=== PATIENT | male | born 1975 | race Hispanic/Latino ===

== ENCOUNTER 2021-01-29 02:21 | Emergency (ER) | payer OTHER, MEDICARE ==
[2021-01-29] MEDS ORDERED: ONDANSETRON 4MG INJ ONE (02:50)
[2021-01-29] MEDS ORDERED: MORPHINE 4 MG SYG ONE (02:51)
[2021-01-29] MEDS ORDERED: KETOROLAC 30MG VIAL (30MG/ML) ONE (02:51)
[2021-01-29 03:17] LABS: BASOPHILS % (AUTO) 0.6 % (0.0-5.0); EOSINOPHILS % (AUTO) 1.8 % (0.0-8.0); HEMATOCRIT 52.4 % (42-54); LYMPHOCYTES % (AUTO) 21.4 % (21.0-51.0); MEAN CORPUSCULAR HEMOGLOBIN 28.9 pg (27.0-33.0); MEAN CORPUSCULAR HGB CONC 33.4 g/dL (32.0-36.0); MEAN CORPUSCULAR VOLUME 86.6 fL (79-99); MONOCYTES % (AUTO) 6.5 % (3.0-13.0); NEUTROPHILS % (AUTO) 69.5 % (40.0-77.0); PLATELET COUNT (AUTO) 232 K/uL (130-400); RED BLOOD CELL COUNT(AUTO) 6.05 MIL/uL (4.50-6.20); WHITE BLOOD COUNT (AUTO) 8.2 K/uL (4.8-10.8)
[2021-01-29 03:22] LABS: APPEARANCE,URINE Clear (CLEAR); BILIRUBIN,URINE Negative (NEGATIVE); COLOR,URINE Yellow (YELLOW); GLUCOSE, URINE (UA) >=1000 mg/dL (NEGATIVE); KETONES,URINE Negative (NEGATIVE); LEUKOCYTE ESTERASE ,URINE Small (NEGATIVE); NITRATE,URINE Negative (NEGATIVE); OCCULT BLOOD,URINE Small (NEGATIVE); PH,URINE 6.5 (5.0-8.0); PROTEIN,URINE Negative (NEGATIVE); UROBILINOGEN,URINE 0.2 mg/dL (0.2-1.0)
[2021-01-29 03:26] LABS: ALBUMIN 3.3 g/dL (3.5-5.0); BILIRUBIN,TOTAL 0.2 mg/dL (0.2-1.0); CREATININE 1.4 mg/dL (0.5-1.5); POTASSIUM 4.5 mmol/L (3.5-5.1); TOTAL PROTEIN, SERUM 6.8 g/dL (6.0-8.3)
[2021-01-29 03:39] LABS: BACTERIA,URINE Few /HPF (None Seen); MUCUS,URINE Few LPF (None Seen); SQUAMOUS EPITHELIAL CELL,UR 0-2 /HPF (0-2); YEAST,URINE BUDDING Few /HPF (None Seen)
[2021-01-29] MEDS ORDERED: 0.9% NACL 500ML IV.SOLN 1,000 ML IV SCH (04:30)
[2021-01-29] MEDS ORDERED: INSULIN HUMULIN R 100 UNIT/ML 3ML SQ ONE (04:30)
[2021-01-29] MEDS ORDERED: 0.9%NACL 1000ML 1,000 ML IV SCH (04:30)
[2021-01-29] MEDS ORDERED: MORPHINE 4 MG SYG IV ONE (05:15)
[2021-01-29] MEDS ORDERED: ACET1TAB25 PO (06:09)
== END 2021-01-29 06:34 | disposition home or self-care (01) ==
LOC: EDH 02:21
DX: N20.0 Calculus of kidney (principal); R73.9 Hyperglycemia, unspecified
CPT/HCPCS: 36415; 74176; 80053; 81001; 82948 ×2; 85025; 96361; 96374; 99284; J2270; J7030; J1885; J2405

== ENCOUNTER → 2021-12-26 | Outpatient (CLI) | payer OTHER, MEDICARE ==
[~2021-12-26] MED LIST: ACET-2079 PO
== END | disposition home or self-care (01) ==
LOC: RAH 08:48
PROVIDERS: ATTEND Urology
DX: N20.0 Calculus of kidney (principal); Z93.6 Other artificial openings of urinary tract status
CPT/HCPCS: 74018; 76100

== ENCOUNTER 2024-10-17 05:40 | Emergency (ER) | payer OTHER, MEDICARE ==
[~2024-10-17] VITALS: Ht 185.4 cm; Wt 101.6 kg
--- NOTE | 2024-10-17 07:25 | ERN ---
General Chief Complaint: Abscess Stated Complaint: ABSCESS Time Seen by MD: 06:55 History of Present Illness Initial Comments 49-year-old male, diabetic, presents for an abscess to the left thigh area. He reports has been present for about two months. He reports it was drained a couple of months ago but has returned. No systemic symptoms. Allergies: Coded Allergies: Penicillins (Unverified Allergy, Unknown, 10/17/24) Home Meds Active Scripts Amoxicillin/Potassium Clav (Amox Tr-K Clv 875-125 mg Tab) 875 Mg-125 Mg Tablet, 1 TAB PO BID for 10 Days, #20 TAB 0 Refills Prov:PHILLIP LAGUERRE Alivia RAINEY 10/17/24 Acetaminophen with Codeine (Acetaminophen-Cod #3 Tablet) 1 Each Tablet, 1 TAB PO Q4H PRN for PAIN LEVEL 1 TO 5 for 3 Days, #15 TAB 0 Refills Prov:EARNEST CARABALLO MD 01/29/21 Past Medical History Past Medical History: Diabetes-Type II Past Surgical History: None ROS Dictation CONSTITUTIONAL: No chills, no fever, no weakness, no diaphoresis, no malaise. HEAD/FACE: No signs of trauma. EENT: No eye pain, no blurred vision, no tearing, no double vision, no ear pain, no ear discharge, no nose pain, no nasal congestion, no throat pain, no throat swelling, no mouth pain. RESPIRATORY: No cough, no orthopnea, no SOB, no stridor, no wheezing. CARDIOVASCULAR: No chest pain, no edema, no palpitations, no syncope. GASTROINTESTINAL/ABDOMINAL: No abdominal pain, no constipation, no diarrhea, no nausea, no vomiting. GENITOURINARY: No abnormal discharge, no dysuria, no frequent urination, no hematuria. No complaints of pain in the genitals. MUSCULOSKELETAL: Pain to the left back of the thigh with fluctuant area INTEGUMENTARY: No change in color, no change in hair/nails, no dryness, no lesion, no lumps, no rash. NEUROLOGICAL/PSYCH: No anxiety, not depressed, no emotional problem, no headache, no numbness, no pre-existing deficit, no history of seizures, no tremors, no weakness. HEMATOLOGIC/LYMPHATIC: Not anemic, no history of blood clots, no apparent bleeding, no bruising, glands not swollen. All Systems Negative, Except as Noted. Physical Exam Physical Exam Dictation VITAL SIGNS: Reviewed. GENERAL APPEARANCE: Alert, oriented x3, no acute distress, obese. HEAD AND FACE: Non-traumatic. EYES: PERRL, pink conjunctivas, eyelid no trauma, anterior chamber clear. EARS: Pinnas intact and no signs of trauma or erythema. Ear canals clear and no discharge. TMs no erythema. NOSE: No discharge, no bleeding. OROPHARYNX: Mouth normal, teeth no caries, tongue pink. Pharynx clear, no erythema. Tonsils no exudates, no abscesses noted. Mucous membrane moist. NECK: Supple, non-tender, no thyromegaly, no masses, no JVD, no bruits. BREAST: Deferred. CHEST: No tenderness, no crepitus, no paradoxical movement, no retractions. LUNGS: Clear, well-ventilated, symmetric, no rales, no wheezing, no rhonchi, no stridor, good breath sounds bilaterally. HEART: Regular rate, regular rhythm, no murmur, no gallops. VASCULAR: No peripheral edema. ABDOMEN: Soft, positive bowel sounds, nondistended, no guarding, nontender, no rebound, no masses no hepatomegaly, no splenomegaly, no Barragan's sign, no hernias. RECTAL: Deferred. GENITAL: Deferred. NEUROLOGICAL: Normal speech, gross motor function intact, gross sensory function intact. MUSCULOSKELETAL: Abscess to the left thigh EXTREMITIES: Nontender, full range of motion. SKIN: Color pink, dry, no turgor, no rash, no lacerations, no abrasions, no contusions. LYMPHATICS: Deferred. [facility] CC: Abscess L thigh Historian: Patient Comorbidities: None Limitations by social determinants of health: None Differential diagnosis: Abscess, cellulitis, other. Vital signs are stable Clinically patient has a an abscess about 2 in in diameter, circular, fluctuant Absence who was drained without any complication I did order some labs, with the patient declines any blood work at this time. He only wants an incision and drainage at this time. Patient reports he will return in 48-72 hours for a wound check. There is packing that we will need to be removed and the wound will need to be re cleaned and re-evaluated. He reports he may have a developing abscess near his scrotum area, but he does not want any treatment or evaluation of this at the time. He says he will get it checked in a couple of days when he returns to the ER. Plan: DC to follow up in the ER in 472 hours for a wound check. Antibiotic pre scription. ED Course Orders Procedure Category Date Status Time Lidocaine 1%-Epi PHA 10/17/24 Complete 1:100,000 (Lidocaine 07:30 Ketorolac PHA 10/17/24 Complete Tromethamine 15mg/Ml 07:30 Current Medications Medications (Trade) Dose Ordered Sig/Angelica Route PRN Reason Start Time Stop Time Status Last Admin Dose Admin Ketorolac Tromethamine (toRADol) 15 mg ONCE ONCE IV 10/17/24 07:30 10/17/24 08:01 DC Lidocaine/ Epinephrine (Lidocaine 1%-Epi 1:100,000) 20 ml ONCE IJ 10/17/24 07:30 10/17/24 07:32 DC Vital Signs Date Time Temp Pulse Resp B/P (MAP) Pulse Ox O2 Delivery O2 Flow Rate FiO2 10/17/24 06:02 97.5 73 16 142/86 95 Room Air* 0 21 10/17/24 05:42 97.5 71 19 161/93 95 Room Air 0 Incision and Drainage Incision and Drainage : Site: Left thigh Blade Size: 11 I & D Procedure: no betadine prep Progress Procedure: Incision and drainage Indication: Abscess to the left thigh Consent: Verbal per patient Description: Approximately two inch in diameter circular fluctuant superficial lesion. Procedure: Cleaned with Betadine. 10 mL of 1% lidocaine injected. Approximately 3 cm linear superficial laceration made. Purulence drained. Loculations were broken up in the complex abscess. Cleaned with sterile water. 1 in packing placed. Covered with a wet gauze. Total time 2 minutes. No complications. Performed by Dr. May. DX & DISP Disposition: Discharge Departure Impression: Primary Impression: Abscess of left thigh Condition: Stable Assign Patient to: You had an abscess on your thigh. It was drained here in the ER. As we discussed, packing was placed. Keep the wound clean with soap and water. Keep it covered with gauze or a Band-Aid. I recommend that you return to the emergency department in 48-72 hours for a wound check. The packing will be removed and the wound will be re-evaluated at that time. I have prescribed Augmentin, which is an antibiotic. Please take as prescribed. You can take ibuprofen (800 mg) or Tylenol (1000 mg) every 4 hours as needed for pain or discomfort. Alternate these medications. These medications are [id number]. Please return to the emergency department if you have any concerns. Scripts Amoxicillin/Potassium Clav (Amox Tr-K Clv 875-125 mg Tab) 875 Mg-125 Mg Tablet 1 TAB PO BID for 10 Days, #20 TAB 0 Refills Prov: PHILLIP LAGUERRE DO 10/17/24 Referrals: SELF,REFERRAL (PCP) PHILLIP LAGUERRE DO Oct 17, 2024 07:25
[2024-10-17] MEDS ORDERED: LIDOCAINE 1%-EPI 1:100,000 20 ML VIAL IJ SCH (07:30)
[2024-10-17] MEDS ORDERED: ketOROlac 15MG/ML VIAL (15MG/ML) IV ONE (07:30)
[2024-10-17] MEDS ORDERED: AMOX1TAB16 PO (08:03)
[2024-10-17 08:17] VITALS: BP 146/85; PULSE 65; RESP 16; TEMP 97.6; O2SAT 97
== END 2024-10-17 08:18 | disposition home or self-care (01) ==
LOC: EDH 05:40
DX: L02.416 Cutaneous abscess of left lower limb (principal); E11.9 Type 2 diabetes mellitus without complications; Z88.0 Allergy status to penicillin
CPT/HCPCS: 10060; 99283